=== PATIENT | male | born 1995 | race Caucasian/White ===

== ENCOUNTER 2022-09-06 10:20 | Day surgery (SDC) | payer BC ==
[2022-09-04 12:35] VITALS: BMI 33.5
--- NOTE | 2022-09-05 21:29 | P.GSHP ---
History of Present Illness H&P Date: 09/05/22 Chief Complaint: Right flank pain The patient is a 26-year-old white male who experienced right flank pain radiating to the right groin. Evaluation consisted of a computed tomography scan which revealed an 8 mm right UPJ calculus without hydronephrosis. Due to intractable pain, he underwent right ureteral stent insertion. - Constitutional Constitutional: Denies chills, Denies fever - Gastrointestinal Gastrointestinal: Reports nausea, Reports vomiting - Genitourinary (Male) Genitourinary: Reports flank pain, Reports kidney stones, Denies dysuria, Denies hematuria Past Medical History Additional Past Medical History / Comment(s): KIDNEY STONE History of Any Multi-Drug Resistant Organisms: None Reported Past Surgical History: Orthopedic Surgery Additional Past Surgical History / Comment(s): ACL REPAIR. STENT PLACED FOR KIDNEY STONE Past Anesthesia/Blood Transfusion Reactions: No Reported Reaction Past Psychological History: No Psychological Hx Reported Smoking Status: Never smoker Past Alcohol Use History: None Reported Past Drug Use History: None Reported - Past Family History Mother Family Medical History: Cancer Additional Family Medical History / Comment(s): UTERINE CA Medications and Allergies Home Medications Medication Instructions Recorded Confirmed Type Ketorolac [Toradol] 10 mg PO DIRECTED PRN 09/04/22 09/04/22 History Allergies Allergy/AdvReac Type Severity Reaction Status Date / Time No Known Allergies Allergy Verified 09/04/22 12:29 Surgical - Exam - General well developed, well nourished, no distress - Respiratory normal respiratory effort - Abdomen Abdomen: soft, non tender, no guarding, no rigid, no rebound - Genitourinary normal penis with no external lesions, testicles non-tender - Psychiatric oriented to time, oriented to person, oriented to place, speech is normal, memory intact Results - Imaging CT scan - abdomen: report reviewed, image reviewed Assessment and Plan (1) Calculus of ureter Status: Acute Code(s): N20.1 - CALCULUS OF URETER SNOMED Code(s): 11305568 Plan: Cystoscopy, right ureteral stent removal, right ureteroscopy with Holmium laser lithotripsy and stone basketing. The procedure has been reviewed in detail with the patient. He is aware of potential risks, which include anesthesia, bleeding, infection, ureteral injury, and inability to remove the calculus.
[~2022-09-06 10:20] MED LIST: DEXAMETHASONE SOD PHOSPHATE 4 MG/ML 1 ML VIAL IV ONE; HYDROmorphone 0.5 MG/0.5 ML SYRINGE IVP PRN; LACTATED RINGERS 1,000 ML IV SCH; ONDANSETRON 4 MG/2 ML VIAL IVP ONE; fentaNYL (PF) 50 MCG/ML 2 ML AMP IV PRN
--- NOTE | 2022-09-06 10:57 | XR ---
EXAMINATION TYPE: XR KUB DATE OF EXAM: 09/06/2022 Comparison: None Clinical History: 26-year-old male N20.1 right ureteral calculus Findings: A right ureteral stent is in place. There is a 8 mm calcification at the proximal stent. A vague 7 mm density left mid abdomen. Nonobstructive bowel gas pattern. Impression: Right ureteral stent. An 8 mm stone either in the upper right ureter or within the right renal pelvis . Nonobstructive 7 mm left renal calculus suggested.
[2022-09-06] MEDS ORDERED: PROPOFOL 10 MG/ML 20 ML VIAL IV ONE (13:42)
[2022-09-06] MEDS ORDERED: GLYCOPYRROLATE 0.2 MG/ML 2 ML VIAL ONE (13:42)
[2022-09-06] MEDS ORDERED: SUCCINYLCHOLINE CHLORIDE 200 MG/10 ML VIAL IV ONE (13:42)
[2022-09-06] MEDS ORDERED: MIDAZOLAM 2 MG/2 ML VIAL ONE (13:42)
[2022-09-06] MEDS ORDERED: LIDOCAINE 2% INJ 20 MG/ML (2 ML VIAL) ONE (13:42)
[2022-09-06] MEDS ORDERED: NEOSTIGMINE 1 MG/ML 10 ML VIAL ONE (13:42)
[2022-09-06] MEDS ORDERED: ROCURONIUM 10 MG/ML (5 ML VIAL) IV ONE (13:42)
[2022-09-06] MEDS ORDERED: fentaNYL (PF) 50 MCG/ML 2 ML AMP ONE (13:42)
--- NOTE | 2022-09-06 14:47 | P.OP ---
Date of Procedure: 09/06/22 Preoperative Diagnosis: Right ureteral calculus Postoperative Diagnosis: Same Procedure(s) Performed: Cystoscopy, right ureteral stent removal, right ureteroscopy with Holmium laser lithotripsy and stone basketing Anesthesia: BRITTNEE Surgeon: Alessio Orosco Estimated Blood Loss (ml): 0 IV fluids (ml): 400 Pathology: other (Calculus fragments, sent for chemical analysis) Condition: stable Disposition: PACU Indications for Procedure: The patient is a 26-year-old white male who experienced right flank pain radiating to the right groin. Evaluation consisted of a CT scan which revealed an 8 mm right UPJ calculus without hydronephrosis. Due to intractable pain, he underwent right ureteral stent insertion. He now comes for ureteroscopic removal of the calculus. Operative Findings: 8 mm right proximal ureteral calculus, fragmented completely and removed via stone basketing. Description of Procedure: The patient was taken to the operating room and placed in the dorsolithotomy position, with legs supported in Gunnar stirrups. The external genitalia was prepped and draped sterilely. The 30 lens was used to introduce the 21-Surinamese Carpenter cystoscopic sheath through the urethra and into the bladder under direct vision. The prostatic urethra showed evidence of mild lateral lobe enlargement. The bladder was examined in its entirety. No tumors or foreign bodies were seen. Grasping forceps were used to grasp the distal end of the right ureteral stent, which was removed along with the cystoscope. A 0.038 inch Glidewire was passed through the stent and advanced up to the right renal pelvis, beyond the proximal ureteral calculus. An 11/13-Surinamese ureteral access catheter was passed over the wire, up to the proximal ureter. The Carpenter Watchsendra flexible ureteroscope was then passed through the ureteral access catheter sheath, up to the stone. The 272 micron Holmium laser probe was passed through the ureteroscope, and lithotripsy was performed. The calculus refluxed into the renal pelvis. As lithotripsy was continued, the calculus was guided into a midpole calyx, where further fragmenting of the calculus was performed. A 1.5-Surinamese nitinol basket was then used to remove the calculus fragments. These were saved and sent for chemical analysis. Once this was completed, only dust remained within the intrarenal collecting system. Pullout ureteroscopy showed no evidence of ure teral trauma, and no ureteral calculus fragments. The patient tolerated the procedure well and was taken to the recovery room in stable condition. [employer] Report: Procedure Acuity: Elective Stone Size and Location: 8 mm, right proximal ureter Ureteral Dilation: No Ureteral Access Sheath Used: Yes Stone Sent for Analysis: Yes All Stones/Fragments Were Removed with a Basket: Yes Complications: No Preoperative Antibiotics Given: Yes Stent Placed: No
[2022-09-06] MEDS ORDERED: KETOROLAC 15 MG/ML 1 ML VIAL IVP ONE (14:56)
[2022-09-06 14:59] VITALS: TEMP 97.8
[2022-09-06 15:51] VITALS: RESP 20
[2022-09-06 16:04] VITALS: BP 112/70; PULSE 60
--- NOTE | 2022-09-06 18:26 | FL ---
EXAMINATION TYPE: FL guidance operating room DATE OF EXAM: 09/06/2022 FLUOROSCOPY Fluoroscopy time of 11 seconds was used during right-sided urologic intervention. 3 image/s document /s the procedure. 1.4567 DAP.
== END 2022-09-06 16:45 | disposition home or self-care (01) ==
LOC: OR 10:20
PROVIDERS: ATTEND Urology
DX: N20.1 Calculus of ureter (principal); Z79.1 Long term (current) use of non-steroidal anti-inflammatories (NSAID); Z80.59 Family history of malignant neoplasm of other urinary tract organ
CPT/HCPCS: 82365; 74018; 52356; C1769; J2250; J0330; J1100; J2710; J0690; J2405; J3010; J1885; J2704; J1170; J2001

== ENCOUNTER → 2022-11-26 | Outpatient (CLI) | payer BC ==
--- NOTE | 2022-11-26 08:44 | US ---
EXAMINATION TYPE: US kidneys/renal and bladder DATE OF EXAM: 11/26/2022 COMPARISON: 09/06/2022 radiograph CLINICAL INDICATION: Male, 26 years old with history of N20.1 CALCULUS OF URETER; Hx of stones remove d x 2 months ago. EXAM MEASUREMENTS: Right Kidney: 12.0 x 4.2 x 5.1 cm Left Kidney: 11.2 x 5.3 x 5.3 cm Right Kidney: No hydronephrosis or masses seen Left Kidney: No hydronephrosis or masses seen Bladder: wnl Bilateral Jets seen: yes There is no evidence for hydronephrosis at this point in time. No nephrolithiasis is seen. No danelle s are identified. The urinary bladder is anechoic. Bilateral ureteral jets are seen. IMPRESSION: No obstructive uropathy.
== END | disposition home or self-care (01) ==
LOC: RADUSWWP 07:29
PROVIDERS: ATTEND Urology
DX: N20.1 Calculus of ureter (principal); Z87.442 Personal history of urinary calculi
CPT/HCPCS: 76770